=== PATIENT | female | born 1965 ===

== ENCOUNTER → 2017-08-31 | Outpatient (CLI) | payer OTHER ==
[~2017-08-31] MED LIST: ALBUTEROL17 G1 IH; AMOX1TAB5; ARNUITY ELLIP100 MCG; AVAPRO300 MG; DIOVAN HCT 320/1 TAB PO; HYZAAR 100-121 UDTAB PO; MUCINEX FAST-M1 EAC8; NEURONTIN300 MG; NEURONTIN800 MG; PREDNISONE2.5 MG PO; PREVACID15 MG PO; PROMETHAZI6.25 MG/5; STIOLTO RESPIMAT4 GM; SYMBICORT 16010.2 GM IH; TRAMADOL HCL-1 UDTAB PO
== END | disposition home or self-care (01) ==
LOC: RAD 12:46
DX: M79.671 Pain in right foot (principal)

== ENCOUNTER → 2018-02-03 | Outpatient (CLI) | payer OTHER | END | disposition home or self-care (01) | LOC: LAB 08:37 | DX: E56.9 Vitamin deficiency, unspecified (principal); E55.9 Vitamin D deficiency, unspecified; E11.9 Type 2 diabetes mellitus without complications; I11.9 Hypertensive heart disease without heart failure; Z68.43 Body mass index [BMI] 50.0-59.9, adult; E66.01 Morbid (severe) obesity due to excess calories; E03.8 Other specified hypothyroidism; M67.971 Unspecified disorder of synovium and tendon, right ankle and foot; E78.2 Mixed hyperlipidemia ==

== ENCOUNTER 2018-08-28 08:37 | Outpatient (CLI) | payer OTHER ==
[~2018-08-28 08:37] MED LIST changes: +CEFUROXIME500 MG PO; +FLONASE16 GM NS
== END 2018-08-28 08:53 | disposition home or self-care (01) ==
LOC: LAB 08:37
DX: E11.9 Type 2 diabetes mellitus without complications (principal); K58.9 Irritable bowel syndrome, unspecified; E55.9 Vitamin D deficiency, unspecified

== ENCOUNTER 2018-08-28 09:17 | Outpatient (CLI) | payer OTHER | END 2018-08-28 09:33 | disposition home or self-care (01) | LOC: RAD 09:17 | DX: K76.0 Fatty (change of) liver, not elsewhere classified (principal); M51.34 Other intervertebral disc degeneration, thoracic region ==

== ENCOUNTER 2018-10-14 07:28 | Emergency (ER) | payer OTHER ==
[~2018-10-14] VITALS: Ht 157.5 cm; Wt 158.8 kg
[2018-10-14] MEDS ORDERED: SYMBICORT 16010.2 GM (08:03)
[2018-10-14] MEDS ORDERED: ZANTAC300 MG (08:03)
[2018-10-14] MEDS ORDERED: VENTOLIN HFA18 GM (08:03)
[2018-10-14] MEDS ORDERED: TRAZODONE HCL50 MG (08:03)
== END 2018-10-14 21:21 | disposition home or self-care (01) ==
LOC: ER 07:28
DX: J45.998 Other asthma (principal); E11.9 Type 2 diabetes mellitus without complications; R06.02 Shortness of breath

== ENCOUNTER 2018-10-16 09:05 | Emergency (ER) | payer OTHER ==
[~2018-10-16] VITALS: Ht 157.5 cm; Wt 158.8 kg
[~2018-10-16 09:05] MED LIST changes: +SYMBICORT 16010.2 GM; +TRAZODONE HCL50 MG; +VENTOLIN HFA18 GM; +ZANTAC300 MG
== END 2018-10-16 14:58 | disposition home or self-care (01) ==
LOC: ER 09:05
DX: J32.8 Other chronic sinusitis (principal)

== ENCOUNTER 2019-02-05 04:24 | Inpatient (IN) | payer OTHER ==
[~2019-02-05] VITALS: Ht 165.1 cm; Wt 158.8 kg
[2019-02-05] MEDS ORDERED: LYRICA100 MG (04:38)
[2019-02-08] MEDS ORDERED: IRBESARTAN300 MG PO (08:26)
[2019-02-08] MEDS ORDERED: RANITIDINE HCL300 MG PO (08:27)
[2019-02-08] MEDS ORDERED: LANSOPRAZOLE30 MG PO (08:27)
[2019-02-08] MEDS ORDERED: LEVOCETIRIZINE D5 MG PO (08:28)
[2019-02-11] MEDS ORDERED: LEVAQUIN750 MG PO (13:21)
[2019-02-11] MEDS ORDERED: INTESTINEX680 M1 PO (13:22)
[2019-02-11] MEDS ORDERED: ZANTAC150 MG PO (13:22)
== END 2019-02-11 15:18 | disposition home or self-care (01) | DRG 202 ==
LOC: ER 04:24 → SURG 20:04
PROVIDERS: ADMIT Internal Medicine
PROC: 3E0F7GC Introduction of Other Therapeutic Substance into Respiratory Tract, Via Natural or Artificial Opening (ICD-10-PCS; principal; 2019-02-05)
PROC: 4A033R1 Measurement of Arterial Saturation, Peripheral, Percutaneous Approach (ICD-10-PCS; 2019-02-05)
DX: J45.51 Severe persistent asthma with (acute) exacerbation (principal); J44.1 Chronic obstructive pulmonary disease with (acute) exacerbation; Z99.11 Dependence on respirator [ventilator] status; E11.9 Type 2 diabetes mellitus without complications; Z79.4 Long term (current) use of insulin; R09.02 Hypoxemia; J30.89 Other allergic rhinitis; E66.01 Morbid (severe) obesity due to excess calories; G47.33 Obstructive sleep apnea (adult) (pediatric); I10 Essential (primary) hypertension

== ENCOUNTER 2019-03-10 10:32 | Outpatient (CLI) | payer OTHER ==
[~2019-03-10] VITALS: Ht 152.4 cm; Wt 140.6 kg
[~2019-03-10 10:32] MED LIST changes: +INTESTINEX680 M1 PO; +IRBESARTAN300 MG PO; +LANSOPRAZOLE30 MG PO; +LEVAQUIN750 MG PO; +LEVOCETIRIZINE D5 MG PO; +LYRICA100 MG; +RANITIDINE HCL300 MG PO; +ZANTAC150 MG PO
== END 2019-03-10 18:25 | disposition home or self-care (01) ==
LOC: OFIC 805 10:32
DX: J45.998 Other asthma (principal); J30.89 Other allergic rhinitis; R09.81 Nasal congestion; J32.8 Other chronic sinusitis

== ENCOUNTER 2019-03-29 10:31 | Outpatient (CLI) | payer OTHER | END 2019-03-29 10:33 | disposition home or self-care (01) | LOC: TOM 10:31 | DX: J30.89 Other allergic rhinitis (principal); J32.8 Other chronic sinusitis ==

== ENCOUNTER 2019-04-12 08:19 | Outpatient (CLI) | payer OTHER | END 2019-04-12 15:00 | disposition home or self-care (01) | LOC: LAB 08:19 | DX: E11.9 Type 2 diabetes mellitus without complications (principal); E66.01 Morbid (severe) obesity due to excess calories; G47.33 Obstructive sleep apnea (adult) (pediatric); J45.30 Mild persistent asthma, uncomplicated; J31.0 Chronic rhinitis; J32.0 Chronic maxillary sinusitis; Z12.11 Encounter for screening for malignant neoplasm of colon; M54.5 Low back pain; E78.2 Mixed hyperlipidemia; R30.0 Dysuria; F33.8 Other recurrent depressive disorders; N60.11 Diffuse cystic mastopathy of right breast ==

== ENCOUNTER 2019-04-12 09:19 | Outpatient (CLI) | payer OTHER | END 2019-04-12 09:29 | disposition home or self-care (01) | LOC: MAMO-SONO 09:19 | DX: Z12.31 Encounter for screening mammogram for malignant neoplasm of breast (principal); N60.01 Solitary cyst of right breast; E11.9 Type 2 diabetes mellitus without complications; I11.9 Hypertensive heart disease without heart failure; Z68.44 Body mass index [BMI] 60.0-69.9, adult; E66.01 Morbid (severe) obesity due to excess calories; G47.33 Obstructive sleep apnea (adult) (pediatric); J45.30 Mild persistent asthma, uncomplicated; J31.0 Chronic rhinitis; J32.0 Chronic maxillary sinusitis; Z12.11 Encounter for screening for malignant neoplasm of colon; M54.5 Low back pain; F33.8 Other recurrent depressive disorders; E78.2 Mixed hyperlipidemia; R30.0 Dysuria; Z87.898 Personal history of other specified conditions; Z09 Encounter for follow-up examination after completed treatment for conditions other than malignant neoplasm ==

== ENCOUNTER 2019-04-29 14:06 | Emergency (ER) | payer OTHER ==
[~2019-04-29] VITALS: Ht 157.5 cm; Wt 157.4 kg
[2019-04-29] MEDS ORDERED: LYRICA100 MG (15:34)
[2019-04-29] MEDS ORDERED: AVAPRO300 MG (15:34)
[2019-04-29] MEDS ORDERED: PREVACID30 MG (15:34)
[2019-04-29] MEDS ORDERED: FOLGARD TABLET1 EACH (15:35)
== END 2019-04-29 22:11 | disposition home or self-care (01) ==
LOC: ER 14:06
DX: R10.84 Generalized abdominal pain (principal); R10.2 Pelvic and perineal pain

== ENCOUNTER 2019-06-01 10:16 | Emergency (ER) | payer OTHER ==
[~2019-06-01] VITALS: Ht 157.5 cm; Wt 153.3 kg
[~2019-06-01 10:16] MED LIST changes: +FOLGARD TABLET1 EACH; +PREVACID30 MG
[2019-06-01] MEDS ORDERED: PREVACID15 MG (10:23)
[2019-06-01] MEDS ORDERED: FLAGYL500MG PO (14:25)
[2019-06-01] MEDS ORDERED: CIPRO500 MG PO (14:25)
[2019-06-01] MEDS ORDERED: ULTRACET PO (14:25)
[2019-06-01] MEDS ORDERED: INTESTINEX680 M1 PO (15:07)
== END 2019-06-01 15:22 | disposition home or self-care (01) ==
LOC: ER 10:16
DX: K57.32 Diverticulitis of large intestine without perforation or abscess without bleeding (principal); K76.0 Fatty (change of) liver, not elsewhere classified

== ENCOUNTER → 2019-09-20 08:34 | Outpatient (CLI) | payer OTHER ==
[~2019-09-20 08:34] MED LIST changes: +CIPRO500 MG PO; +FLAGYL500MG PO; +PREVACID15 MG; +ULTRACET PO
== END | disposition home or self-care (01) ==
LOC: LAB 08:34
DX: N63.14 Unspecified lump in the right breast, lower inner quadrant (principal); E46 Unspecified protein-calorie malnutrition; E11.22 Type 2 diabetes mellitus with diabetic chronic kidney disease; E11.69 Type 2 diabetes mellitus with other specified complication; I13.10 Hypertensive heart and chronic kidney disease without heart failure, with stage 1 through stage 4 chronic kidney disease, or unspecified chronic kidney disease; Z68.44 Body mass index [BMI] 60.0-69.9, adult; E66.01 Morbid (severe) obesity due to excess calories; G47.33 Obstructive sleep apnea (adult) (pediatric); J45.30 Mild persistent asthma, uncomplicated; J31.0 Chronic rhinitis; J32.0 Chronic maxillary sinusitis; K76.0 Fatty (change of) liver, not elsewhere classified; K57.30 Diverticulosis of large intestine without perforation or abscess without bleeding; R19.5 Other fecal abnormalities; M79.10 Myalgia, unspecified site; M51.34 Other intervertebral disc degeneration, thoracic region; M47.818 Spondylosis without myelopathy or radiculopathy, sacral and sacrococcygeal region; F33.1 Major depressive disorder, recurrent, moderate; E78.2 Mixed hyperlipidemia

== ENCOUNTER 2020-02-26 17:58 | Emergency (ER) | payer OTHER ==
[~2020-02-26] VITALS: Ht 152.4 cm; Wt 127.0 kg
[2020-02-26] MEDS ORDERED: SKELAXIN800 MG (19:44)
== END 2020-02-26 21:45 | disposition home or self-care (01) ==
LOC: ER 17:58
DX: U07.1 COVID-19 (principal)

== ENCOUNTER 2020-08-21 07:32 | Outpatient (CLI) | payer OTHER | END 2020-08-21 07:38 | disposition home or self-care (01) | LOC: LAB 07:32 | PROVIDERS: ATTEND General Practice | DX: I11.9 Hypertensive heart disease without heart failure (principal); E11.40 Type 2 diabetes mellitus with diabetic neuropathy, unspecified; E78.2 Mixed hyperlipidemia ==

== ENCOUNTER → 2020-08-21 | Outpatient (CLI) | payer OTHER ==
[~2020-08-21] MED LIST changes: +SKELAXIN800 MG
== END | disposition home or self-care (01) ==
LOC: MAMO-SONO 08:41
PROVIDERS: ATTEND General Practice
DX: N60.02 Solitary cyst of left breast (principal); Z12.31 Encounter for screening mammogram for malignant neoplasm of breast; N64.59 Other signs and symptoms in breast

== ENCOUNTER 2021-04-18 08:25 | Inpatient (IN) | payer OTHER ==
[~2021-04-18] VITALS: Ht 157.5 cm; Wt 169.2 kg
--- NOTE | 2021-04-18 08:38 | NUR ---
SE RECIBE PACIENTE ALERTA Y ORIENTADA X3, REFIERE TENER DOLOR ABDOMINAL Y EPISODIOS DE VOMITOS DESDE EL MARYLIN.SE MONITOREAN S/V. SE UBICA EN AREA DE OBSERVACION.
--- NOTE | 2021-04-18 10:07 | NUR ---
PTE ALERTA Y ORIENTADA X3. SE EL EDUCA SOBRE MEDICAMNETO A ADMINISTRAR Y MUESTRAS DE LABORATORIO A REALIZAR JULIEN ORDEN MEDICA. PTE REFIERE ENTENDER. SE OFRECE EDUCACION SOBRE CT CON CONTRASTE A REALIZAR JULIEN ORDEN MEDICA. SE REALIZAR VENOPUNBION BAJO MEDIDAS ASEPTICAS, PATENTE, LIBREDE EDEMA Y ERITEMA. PTE COMIENZA A TUSHAR CONTRASTE Y PENDIENTE MUESTRA DE ORINA.
--- NOTE | 2021-04-18 14:32 | NUR ---
POR SRI MEDICA SE LE COMIENZA CON ZOSYN 4.5 GR IV . SE LE NOTIFICA A EL ADRYAN CHEN Y AL DR.MARQUEZ BRIZUELA LA CONSULTA. SE MANTIENE BAJO OBSERVACION.
[2021-04-19] MEDS ORDERED: SERTRALINE HCL50 MG (10:03)
[2021-04-19] MEDS ORDERED: LEVOCETIRIZINE D5 MG (10:03)
[2021-04-19] MEDS ORDERED: METHYLPREDNISOLO8 MG (10:03)
[2021-04-19] MEDS ORDERED: AMOX-CLAV 875-1 EAC1 (10:03)
[2021-04-19] MEDS ORDERED: TIZANIDINE HCL4 M1 (10:03)
[2021-04-19] MEDS ORDERED: FLONASE16 GM (10:04)
[2021-04-19] MEDS ORDERED: NORVASC2.5 MG (10:04)
[2021-04-19] MEDS ORDERED: LIDOCAINE1 EACH (10:04)
[2021-04-19] MEDS ORDERED: AZELASTINE137 MCG/0. (10:04)
== END 2021-04-20 13:12 | disposition home or self-care (01) | DRG 342 ==
LOC: ER 08:25 → SEC-K 15:26 → SURH 15:26
PROVIDERS: ADMIT Surgery; ATTEND Surgery
PROC: 0DTJ4ZZ Resection of Appendix, Percutaneous Endoscopic Approach (ICD-10-PCS; principal; 2021-04-19 08:00)
PROC: 3E0F7GC Introduction of Other Therapeutic Substance into Respiratory Tract, Via Natural or Artificial Opening (ICD-10-PCS; 2021-04-20)
DX: K35.20 Acute appendicitis with generalized peritonitis, without abscess (principal); J45.901 Unspecified asthma with (acute) exacerbation; E86.0 Dehydration; J44.9 Chronic obstructive pulmonary disease, unspecified

== ENCOUNTER 2022-01-10 06:37 | Outpatient (CLI) | payer OTHER ==
[~2022-01-10 06:37] MED LIST changes: +AMOX-CLAV 875-1 EAC1; +AZELASTINE137 MCG/0.; +FLONASE16 GM; +LEVOCETIRIZINE D5 MG; +LIDOCAINE1 EACH; +METHYLPREDNISOLO8 MG; +NORVASC2.5 MG; +SERTRALINE HCL50 MG; +TIZANIDINE HCL4 M1
== END 2022-01-10 06:38 | disposition home or self-care (01) ==
LOC: LAB 06:37
PROVIDERS: ATTEND General Practice
DX: N63.12 Unspecified lump in the right breast, upper inner quadrant (principal); E11.9 Type 2 diabetes mellitus without complications; I11.9 Hypertensive heart disease without heart failure; Z68.44 Body mass index [BMI] 60.0-69.9, adult; E03.9 Hypothyroidism, unspecified; R10.9 Unspecified abdominal pain; R10.2 Pelvic and perineal pain; M79.7 Fibromyalgia; E78.2 Mixed hyperlipidemia; E55.9 Vitamin D deficiency, unspecified

== ENCOUNTER 2022-01-10 07:36 | Outpatient (CLI) | payer OTHER | END 2022-01-10 07:47 | disposition home or self-care (01) | LOC: MAMO-SONO 07:36 | PROVIDERS: ATTEND General Practice | DX: N63.12 Unspecified lump in the right breast, upper inner quadrant (principal); R10.9 Unspecified abdominal pain; R10.2 Pelvic and perineal pain ==

== ENCOUNTER 2022-04-22 12:57 | Outpatient (CLI) | payer OTHER | END 2022-04-22 13:01 | disposition home or self-care (01) | LOC: LAB 12:57 | PROVIDERS: ATTEND Radiology Diagnostic Radiology | DX: R10.32 Left lower quadrant pain (principal) ==